=== PATIENT | female | born 1970 | race Caucasian/White ===

== ENCOUNTER 2016-12-01 21:58 | Observation (INO) | payer MEDICAID ==
[2016-12-01] MEDS ORDERED: SODIUM CHLORIDE 0.9% 500 ML IV STA (22:16)
--- NOTE | 2016-12-01 22:21 | ED ---
General Adult HPI - General Chief complaint: Arrhythmia/Palpitations Stated complaint: Arrythmia Time Seen by Provider: 12/01/16 22:00 Source: patient, RN notes reviewed Mode of arrival: wheelchair Limitations: no limitations - History of Present Illness Initial comments: This is a 46-year-old female presents emergency Department complaining of feeling like her heart is having an extra beat occasionally she states she's had this multiple times in the past but never been followed up for. Patient states he started to have some left arm heaviness and some pain into her neck and that made her nervous. Patient states the episodes occur quickly and go away quickly but they keep recurring. She came to the emergency department. Patient denies any shortness of breath patient denies any chest pain. Patient states she still has some arm heaviness. Patient denies headache patient denies numbness weakness. Patient denies lightheadedness dizziness or syncopal episode. Patient states now she is very anxious and she does have a history of anxiety. Patient is a smoker she denies being a diabetic denies hypertension denies high cholesterol. His any recent fever chill or cough. - Related Data Home Medications Medication Instructions Recorded Confirmed Albuterol Inhaler [Ventolin Hfa 2 puff IH DAILY 07/10/16 12/01/16 Inhaler] Montelukast Sodium [Singulair] 10 mg PO DAILY 07/10/16 12/01/16 Omalizumab [Xolair] 375 mg SQ DIRECTED 07/24/16 12/01/16 Fluticasone/Salmeterol [Advair 1 puff INHALATION BID 08/08/16 12/01/16 500-50 Diskus] Allergies Allergy/AdvReac Type Severity Reaction Status Date / Time levofloxacin [From Levaquin] Allergy Rash/Hives Verified 12/01/16 22:04 Review of Systems ROS Statement: Those systems with pertinent positive or pertinent negative responses have been documented in the HPI. ROS Other: All systems not noted in ROS Statement are negative. Past Medical History Past Medical History: Asthma Additional Past Medical History / Comment(s): psoriasis History of Any Multi-Drug Resistant Organisms: None Reported Past Surgical History: Ablation Additional Past Surgical History / Comment(s): endometrial ablation. wisdom teeth surgically removed Past Psychological History: Depression Smoking Status: Current every day smoker Past Alcohol Use History: Occasional Past Drug Use History: None Reported General Exam - General Exam Comments Initial Comments: GENERAL: Patient is well-developed and well-nourished. Patient is nontoxic and well- hydrated and is in mild distress. ENT: Neck is soft and supple. No significant lymphadenopathy is noted. Oropharynx is clear. Moist mucous membranes. Neck has full range of motion without eliciting any pain. EYES: The sclera were anicteric and conjunctiva were pink and moist. Extraocular movements were intact and pupils were equal round and reactive to light. Eyelids were unremarkable. PULMONARY: Unlabored respirations. Good breath sounds bilaterally. No audible rales rhonchi or wheezing was noted. CARDIOVASCULAR: There is a regular rate and rhythm without any murmurs gallops or rubs. ABDOMEN: Soft and nontender with normal bowel sounds. No palpable organomegaly was noted. There is no palpable pulsatile mass. SKIN: Skin is clear with no lesions or rashes and otherwise unremarkable. NEUROLOGIC: Patient is alert and oriented x3. Cranial nerves II through XII are grossly intact. Motor and sensory are also intact. Normal speech, volume and content. Symmetrical smile. MUSCULOSKELETAL: Normal extremities with adequate strength and full range of motion. No lower extremity swelling or edema. No calf tenderness. LYMPHATICS: No significant lymphadenopathy is noted PSYCHIATRIC: Normal psychiatric evaluation. Patient is very anxious Limitations: no limitations Course Vital Signs 12/01/16 12/01/16 22:01 23:28 Temperature 98.7 F Pulse Rate 90 72 Respiratory 20 18 Rate Blood Pressure 136/87 116/68 O2 Sat by Pulse 98 98 Oximetry Medical Decision Making - Medical Decision Making EKG shows normal sinus rhythm at 86 bpm VT interval 116 QRS is 76 QT interval 352 QTC is 421. Patient's EKG shows no ST segment elevation or depression or T- wave abdomen is noted. Chest x-ray shows no acute abnormality Patient had no more symptoms while in the emergency department however she was uncomfortable going home so decided that the patient repeat enzymes and have cardiology see the patient the morning. Spoke with Dr. Jacobo he agreed to admit the patient I wrote orders and consult cardiology. - Lab Data Result diagrams: 12/01/16 22:32 12/01/16 22:32 Lab Results 12/01/16 12/01/16 12/01/16 Range/Units 22:32 22:32 22:32 WBC 10.5 (3.8-10.6) k/uL RBC 4.31 (3.80-5.40) m/uL Hgb 13.5 (11.4-16.0) gm/dL Hct 39.4 (34.0-46.0) % MCV 91.4 (80.0-100.0) fL MCH 31.2 (25.0-35.0) pg MCHC 34.1 (31.0-37.0) g/dL RDW 12.6 (11.5-15.5) % Plt Count 295 (150-450) k/uL Neutrophils % 57 % Lymphocytes % 31 % Monocytes % 7 % Eosinophils % 2 % Basophils % 1 % Neutrophils # 6.0 (1.3-7.7) k/uL Lymphocytes # 3.3 (1.0-4.8) k/uL Monocytes # 0.7 (0-1.0) k/uL Eosinophils # 0.2 (0-0.7) k/uL Basophils # 0.1 (0-0.2) k/uL PT (9.0-12.0) sec INR (<1.1) APTT (22.0-30.0) sec Sodium 141 (137-145) mmol/L Potassium 4.1 (3.5-5.1) mmol/L Chloride 108 H (98-107) mmol/L Carbon Dioxide 23 (22-30) mmol/L Anion Gap 10 mmol/L BUN 11 (7-17) mg/dL Creatinine 0.80 (0.52-1.04) mg/dL Est GFR (MDRD) Af Amer >60 (>60 ml/min/1.73 sqM) Est GFR (MDRD) Non-Af >60 (>60 ml/min/1.73 sqM) Glucose 103 H (74-99) mg/dL Calcium 9.6 (8.4-10.2) mg/dL Magnesium 2.1 (1.6-2.3) mg/dL Total Bilirubin 0.5 (0.2-1.3) mg/dL AST 18 (14-36) U/L ALT 21 (9-52) U/L Alkaline Phosphatase 66 (38-126) U/L Total Creatine Kinase 117 (30-135) U/L CK-MB (CK-2) 0.3 (0.0-2.4) ng/mL CK-MB (CK-2) Rel Index 0.3 Troponin I <0.012 (0.000-0.034) ng/mL Total Protein 7.2 (6.3-8.2) g/dL Albumin 4.3 (3.5-5.0) g/dL TSH 2.990 (0.465-4.680) mIU/L Free T4 0.84 (0.78-2.19) ng/dL 12/01/16 Range/Units 22:32 WBC (3.8-10.6) k/uL RBC (3.80-5.40) m/uL Hgb (11.4-16.0) gm/dL Hct (34.0-46.0) % MCV (80.0-100.0) fL MCH (25.0-35.0) pg MCHC (31.0-37.0) g/dL RDW (11.5-15.5) % Plt Count (150-450) k/uL Neutrophils % % Lymphocytes % % Monocytes % % Eosinophils % % Basophils % % Neutrophils # (1.3-7.7) k/uL Lymphocytes # (1.0-4.8) k/uL Monocytes # (0-1.0) k/uL Eosinophils # (0-0.7) k/uL Basophils # (0-0.2) k/uL PT 10.6 (9.0-12.0) sec INR 1.0 (<1.1) APTT 23.3 (22.0-30.0) sec Sodium (137-145) mmol/L Potassium (3.5-5.1) mmol/L Chloride (98-107) mmol/L Carbon Dioxide (22-30) mmol/L Anion Gap mmol/L BUN (7-17) mg/dL Creatinine (0.52-1.04) mg/dL Est GFR (MDRD) Af Amer (>60 ml/min/1.73 sqM) Est GFR (MDRD) Non-Af (>60 ml/min/1.73 sqM) Glucose (74-99) mg/dL Calcium (8.4-10.2) mg/dL Magnesium (1.6-2.3) mg/dL Total Bilirubin (0.2-1.3) mg/dL AST (14-36) U/L ALT (9-52) U/L Alkaline Phosphatase (38-126) U/L Total Creatine Kinase (30-135) U/L CK-MB (CK-2) (0.0-2.4) ng/mL CK-MB (CK-2) Rel Index Troponin I (0.000-0.034) ng/mL Total Protein (6.3-8.2) g/dL Albumin (3.5-5.0) g/dL TSH (0.465-4.680) mIU/L Free T4 (0.78-2.19) ng/dL Disposition Clinical Impression: Atypical angina Disposition: ADMITTED IP TO THIS [facility] Time of Disposition: 23:47
[2016-12-01 22:44] LABS: Basophils # (A) 0.1 k/uL (0-0.2); Basophils % (A) 1 %; CH 31.2; CHCM 34.3; Eosinophils # (A) 0.2 k/uL (0-0.7); Eosinophils % (A) 2 %; HCT 39.4 % (34.0-46.0); HDW 2.18; HGB 13.5 gm/dL (11.4-16.0); Luc # (Auto) 0.23; Luc % (Auto) 2; Lymphocytes # (A) 3.3 k/uL (1.0-4.8); Lymphocytes % (A) 31 %; MCH 31.2 pg (25.0-35.0); MCHC 34.1 g/dL (31.0-37.0); MCV 91.4 fL (80.0-100.0); Mean Platelet Volume 7.4; Monocytes # (A) 0.7 k/uL (0-1.0); Monocytes % (A) 7 %; Neutrophils % (A) 57 %; RBC 4.31 m/uL (3.80-5.40); RDW 12.6 % (11.5-15.5); WBC 10.5 k/uL (3.8-10.6); WBC (Perox) 11.32
[2016-12-01 22:53] LABS: Partial Thromboplastin Time 23.3 sec (22.0-30.0); Prothrombin Time 10.6 sec (9.0-12.0)
--- NOTE | 2016-12-01 22:56 | XR ---
History: Reason: dysrhythmia Exam: XR CXR 2 VIEWS Comparison: None available FINDINGS: The lungs are clear. The cardiac and mediastinal contours are within limits. The visualized osseous structures appear within limits. IMPRESSION: No evidence of acute disease.
[2016-12-01 23:06] LABS: ALT 21 U/L (9-52); AST 18 U/L (14-36); Alkaline Phosphatase 66 U/L (38-126); Anion Gap 10 mmol/L; Blood Urea Nitrogen 11 mg/dL (7-17); Calcium 9.6 mg/dL (8.4-10.2); Carbon Dioxide 23 mmol/L (22-30); Chloride 108 mmol/L (98-107); Glucose 103 mg/dL (74-99); Magnesium 2.1 mg/dL (1.6-2.3); Non-African American GFR(MDRD) >60 (>60 ml/min/1.73 sqM); Potassium 4.1 mmol/L (3.5-5.1); Sodium 141 mmol/L (137-145); Total Bilirubin 0.5 mg/dL (0.2-1.3); Total Protein 7.2 g/dL (6.3-8.2)
[2016-12-01 23:16] LABS: Creatine Kinase 117 U/L (30-135)
[2016-12-01 23:28] LABS: Creatine Kinase MB 0.3 ng/mL (0.0-2.4); Troponin I <0.012 ng/mL (0.000-0.034)
[2016-12-01] MEDS ORDERED: NITROGLYCERIN SL TABS 0.4 MG TAB SUBLINGUAL PRN (23:47)
[2016-12-01] MEDS ORDERED: ASPIRIN 81 MG CHEW PO STA (23:47)
[2016-12-02] MEDS: NITROGLYCERIN OINT 1 INCH/GM PACKET TOPICAL SCH ×4 (00:26→16:29)
[2016-12-02 05:21] VITALS: BMI 26.4
[2016-12-02 06:36] LABS: Cholesterol 144 mg/dL (<200); HDL Cholesterol 51 mg/dL (40-60); Triglycerides 38 mg/dL (<150)
[2016-12-02 06:51] LABS: Creatine Kinase 97 U/L (30-135)
[2016-12-02 07:05] LABS: Creatine Kinase MB 0.3 ng/mL (0.0-2.4); Troponin I <0.012 ng/mL (0.000-0.034)
[2016-12-02] MEDS ORDERED: ALBUTEROL NEBULIZED 2.5 MG/3 ML INHALATION PRN (09:49)
[2016-12-02] MEDS ORDERED: LORazepam 2 MG/ML SYRINGE IV ONE (09:52)
[2016-12-02] MEDS ORDERED: OMALIZUMAB 150 MG VIAL SQ SCH (10:00)
[2016-12-02 11:33] LABS: Creatine Kinase 92 U/L (30-135)
[2016-12-02 11:44] LABS: Creatine Kinase MB 0.3 ng/mL (0.0-2.4); Troponin I <0.012 ng/mL (0.000-0.034)
--- NOTE | 2016-12-02 14:00 | ECHOF ---
Referral Reason:lv function MEASUREMENTS -------- HEIGHT: 162.6 cm WEIGHT: 69.4 kg BP: IVSd: 0.9 cm (0.6 - 1.1) LVIDd: 3.7 cm (3.9 - 5.3) LVPWd: 1.0 cm (0.6 - 1.1) IVSs: 1.1 cm LVIDs: 2.5 cm LVPWs: 1.4 cm Ao Diam: 2.8 cm (2.0 - 3.7) AV Cusp: 1.8 cm (1.5 - 2.6) LA Diam: 3.2 cm (2.7 - 3.8) MV EXCURSION: 11.844 mm (> 18.000) MV EF SLOPE: 75 mm/s (70 - 150) EPSS: 0.6 cm MV E Colt: 0.80 m/s MV DecT: 201 ms MV A Colt: 0.75 m/s MV E/A Ratio: 1.06 RAP: 5.00 mmHg RVSP: 13.38 mmHg FINDINGS -------- Sinus rhythm. This was a technically good study. The left ventricular size is normal. Left ventricular wall thickness is normal. Overall left ventricular systolic function is normal with, an EF between 55 - 60 %. The right ventricle is normal in size and function. The left atrium is normal in size. The right atrium is normal in size. The aortic valve is trileaflet, and appears structurally normal. No aortic stenosis or regurgitation. The mitral valve is normal. There is trace mitral regurgitation. Trace tricuspid regurgitation present. There is no evidence of pulmonary hypertension. The right ventricular systolic pressure, as measured by Doppler, is 13.38mmHg. There is no pulmonic regurgitation present. The aortic root size is normal. There is no pericardial effusion. CONCLUSIONS -------- 1. Sinus rhythm. 2. The aortic root size is normal. 3. There is no pericardial effusion. 4. This was a technically good study. 5. Left ventricular wall thickness is normal. 6. Overall left ventricular systolic function is normal with, an EF between 55 - 60 %. 7. The left atrium is normal in size. 8. The aortic valve is trileaflet, and appears structurally normal. No aortic stenosis or regurgitation. 9. There is trace mitral regurgitation. 10. Trace tricuspid regurgitation present. 11. There is no pulmonic regurgitation present. PROFESSOR COMPUTER SCIENCE: Rain Chinchilla RDCS
--- NOTE | 2016-12-02 15:39 | CONS ---
DATE OF CONSULTATION: Admitted by Dr. Jacobo. Consultation requested by Dr. Jacobo. REASON FOR CONSULTATION: Cardiac evaluation and treatment. 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 Presented to the hospital with palpitations, followed by left arm numbness and also, numbness left side of the jaw. Patient is a smoker, smokes about 7 cigarettes a day and no family history of premature coronary artery disease. No history of hypertension, no history of diabetes. Patient's cholesterol is within normal limits. LDL cholesterol is 85. Patient is reasonably active but does not do any exercise. Patient is a mother of 2 children had endometrial ablation done because of excessive menstrual bleeding. The patient's medications prior to admission include: 1. Albuterol inhaler. 2. Singulair. 3. Xolair. 4. Fluticasone IM. 5. Advair Diskus 500/50 1 puff b.i.d. ALLERGIES: INCLUDE LEVOFLOXACIN. Patient's review of systems are essentially unremarkable, history of asthma, history of psoriasis, otherwise unremarkable. Patient is a current smoker. History of depression. Review of systems are essentially unremarkable other than what is stated in the presenting illness. Physical examination revealed well-developed, well-nourished, 46-year-old lady not in any acute distress, oriented x3 with a pulse rate of 70 beats and regular, blood pressure 110/66, respirations of 18. HEAD: Normocephalic. HEENT unremarkable. Neck is supple. No thyroid enlargement. No bruit noted. Good carotid upstroke bilaterally. Chest is symmetrical. CARDIAC EXAMINATION: Regular rate and rhythm. S1 and S2. No gallops or murmurs are noted. Lungs are clinically to auscultation and percussion. Scattered rhonchi. ABDOMEN: Soft, no organomegaly. Active bowel sounds. EXTREMITIES: Peripheral pulses. No pedal edema. BASKETBALL COMMENTATOR examination: Grossly within normal limits. EKG revealed normal sinus rhythm, normal ST-T waves. The patient's rhythm strip showed one episode of slow V. tach and converted to sinus rhythm spontaneously. Patient does have frequent PVCs. Troponin x 2 are negative. Chest x-ray is unremarkable. ASSESSMENT: 1. Atypical chest pains with palpitations rule out underlying ischemic heart disease. 2. History of asthma. 3. History of smoking. RECOMMENDATIONS: Proceed with an echocardiogram and a stress echocardiogram. If the studies are normal, patient may be able to go home on beta blockers and complete cessation of smoking is recommended along with baby aspirin. If studies are abnormal may consider doing an event monitor as an outpatient, 30 day event monitoring.
--- NOTE | 2016-12-02 15:43 | EST ---
DATE OF SERVICE: 12/02/2016 AGE: 46Y SEX: F HT: 64" WT: 153 lbs. Protocol Hitesh: Other: Stage: Dur. of Exercise: 4:33 minutes *Heart Rate Blood Pressure *Rest: 74 Rest: 123/62 * *Max. Achieved: 151 Maximum BP: 213/73 85% PMHR: 150 100% PMHR: 176 *METS: 5.4 INDICATIONS: Chest pain. MEDICATIONS: See list. Baseline rhythm is sinus mechanism, rate of 74, normal axis and intervals. Normal electrocardiogram. Baseline blood pressure 123/62 mmHg. Patient exercised Hitesh protocol for 4 minutes 33 seconds reaching peak rate of 151 beats per minute, which is equal to 85% maximum predicted heart rate; peak blood pressure 204/70 mmHg. The test was stopped because of fatigue. There was no chest pain. Electrocardiograph monitoring revealed occasional PVCs. There was a 0.[address] segment depression at peak exercise that resolved in recovery. FINDINGS: Baseline echocardiogram revealed normal wall motion. At peak exercise there was normal wall motion augmentation with no hypokinesis or dyskinesis. CONCLUSION: 1. Poor exercise tolerance with occasional premature ventricular contractions and 0.[address] segment depression at peak exercise. 2. Normal stress echocardiogram with no evidence of stress-induced ischemia.
[2016-12-02 17:36] VITALS: BP 122/69; PULSE 74; RESP 16; TEMP 98.5
[2016-12-02] MEDS ORDERED: SYMBICORT 160-4.5 MCG INHALER INHALATION SCH (20:00)
[2016-12-02] MEDS ORDERED: MONTELUKAST 10 MG TAB PO SCH (21:00)
[2016-12-03] MEDS ORDERED: ALBUTEROL NEBULIZED 2.5 MG/3 ML INHALATION SCH (08:00)
[2016-12-03] MEDS ORDERED: ASPIRIN 325 MG TAB PO SCH (09:00)
--- NOTE | 2016-12-03 10:11 | HP ---
DATE OF ADMISSION: CHIEF COMPLAINT: Palpitations and arrhythmia. HISTORY OF PRESENT ILLNESS: This is a 46-year-old female with known history of asthma, active smoking, psoriasis and depression, who came to the hospital with complaints of feeling like heart stopped and the patient had multiple similar episodes for the past one week. The patient felt some chest heaviness and not pain as per the patient, which made the patient very nervous. The patient came to the hospital. The patient says that she had similar episode while in the telemetry unit. EKG showed multiple PVCs. Patient continued to smoke about 6 or 7 cigarettes per day, trying to quit. Denied any history of hypertension, diabetes mellitus. Otherwise, patient denied any complaints of dizziness or lightheadedness. No nausea or vomiting associated with the chest tightness. Patient was seen by Cardiology and recommended a stress test. REVIEW OF SYSTEMS: CONSTITUTIONAL: No fever. No chills. No weakness. RESPIRATORY: No cough or sputum production. CARDIOVASCULAR: ( ) short of breath. ABDOMEN: No nausea, vomiting or abdominal pain. EXTREMITIES: No leg swelling. GENITOURINARY: Negative. ENDOCRINE: Negative. PSYCHIATRIC: Anxious. SKIN: Negative. MUSCULOSKELETAL: Negative. All other fourteen point review of systems negative as above. PAST MEDICAL HISTORY: Psoriasis, asthma, depression. PAST SURGICAL HISTORY: Endometrial ablation secondary to menstrual heavy bleed, wisdom tooth surgically removed. SOCIAL HISTORY: The patient is currently an everyday smoker; smokes about 7 to 8 cigarettes per day. Occasional alcohol use. Denied any drugs or IVDU. The patient works as a RN. FAMILY HISTORY: No history of coronary artery disease in her family. ALLERGIES: LEVOFLOXACIN. Home medications include: Albuterol inhaler, Singulair, Xolair. Patient is supposed to get PFTs done next week. PHYSICAL EXAMINATION: A 46-year-old female, lying in the bed, awake, alert, oriented x3, in no apparent distress. Patient seems anxious. VITALS: Blood pressure 136/87, pulse is 90, respirations 20, temperature afebrile, pulse ox 98% on room air on admission. HEENT: Atraumatic, normocephalic. Neck is supple. No JVD. CVS: S1, S2 heard. No murmurs, no gallop, no rub. LUNGS: Entry is present. No wheezing. No crackles. Nonlabored breathing. ABDOMEN: Soft, nontender. Bowel sounds are present. CASE MGR: Awake, alert, oriented x3. No focal deficit. EXTREMITIES: No edema. Pulses palpable bilaterally. No clubbing or cyanosis. PSYCHIATRIC: Cooperative. LABORATORY DATA: WBC 10.5, hemoglobin 13.5, platelets 295, INR 1.0. Sodium 141, potassium 4.1, chloride 108, bicarb is 23, BUN 11, creatinine 0.8, blood sugar is 103. Liver enzymes are within normal limits. TSH is 2.9, FT4 is 0.84. UDS negative. Troponin x3 negative. Chest x-ray, no cardiopulmonary process. Echocardiogram showed a normal ejection fraction. No valvular abnormal. IMPRESSION: 1. Atypical chest pain with palpitations. Rule out any acute coronary syndrome. Patient was as seen by Cardiology and recommend stress test. 2. History of asthma. 3. Ongoing nicotine addiction. 4. Possible chronic obstructive pulmonary disease. 5. History of psoriasis. 6. Depression. 7. Anxiety. DISCUSSION AND PLAN: Patient will be continued on telemetry monitoring, serial EKGs and troponins. Cardiology has seen the patient and recommended a stress echo. The patient was counseled about smoking cessation. Continue to follow closely. Further recommendations based the clinical course. EKG showed normal sinus rhythm with occasional PVCs.
--- NOTE | 2016-12-03 20:23 | DS ---
DATE OF ADMISSION: 12/01/2016 DATE OF DISCHARGE: 12/02/2016 Cardiac consultation, stress echocardiogram. DISCHARGE DIAGNOSES: 1. Atypical chest pain, rule out acute coronary syndrome. 2. Palpitations. 3. Anxiety and depression. 4. History of psoriasis. 5. Continued ongoing nicotine addiction. 6. Asthma, suspected COPD patient is supposed to get pulmonary function test next week. DISCUSSION AND PLAN: A 46 -year-old female with known history of multiple medical problems as discussed above admitted to the hospital with heart palpitations, and felt like heart stopped and missed beats. The patient had EKG showed sinus rhythm with PVCs. The patient was telemonitored to the hospital. Cardiology has seen the patient. Recommendations stress echocardiogram which showed new ischemia in the stress echo. Otherwise, patient says that she had another episode of palpitations sometime today morning. The patient says that initially patient had this episode while watching TV and lasts about 15 minutes and numb and heavy feeling in the chest. Since stress test is negative, Cardiology recommended low-dose ( ) with beta blockers and baby aspirin and follow with cardiology for event monitor placement. Patient currently symptom free. The patient counselled extensively for smoking cessation and follow with pulmonary clinic for pulmonary function tests. Recommend to follow at cardiology clinic to get event monitor. Otherwise, the patient will be discharged home in stable condition, currently asymptomatic. PHYSICAL EXAMINATION: A 46-year-old female lying in bed comfortably, awake, alert and oriented times three, appears to be anxious. VITALS: Blood pressure is 122/69, pulse is 74, respirations 18, temperature afebrile, pulse ox 99% on room air. Laboratory data reviewed. Discharge physical examination done. Discharge medications include: 1. Albuterol inhaler 2 puffs inhalation daily. 2. ( ) Q.6 hourly p.r.n. for shortness of breath. 3. Singulair 10 mg p.o. daily. 4. Xolair 375 mg subcutaneous q. 14 days. 5. Advair 1 puff inhalation daily. 6. Aspirin 81 mg p.o. daily. 7. Metoprolol 12.5 mg p.o. b.i.d. The patient will be discharged home, heart healthy diet. Smoking cessation has been consulted and follow with pulmonary for PFTs and following at the cardiology clinic.
== END 2016-12-02 19:48 | disposition home or self-care (01) ==
LOC: EC 21:58 → 3SUR 23:49 → 3OBS 12-02 00:46 → 6SEL 12-02 04:34
PROVIDERS: ADMIT Hospitalist; ATTEND Hospitalist
DX: R07.89 Other chest pain (principal); R00.2 Palpitations; R20.0 Anesthesia of skin; L40.9 Psoriasis, unspecified; J45.909 Unspecified asthma, uncomplicated; F32.9 Major depressive disorder, single episode, unspecified; F41.9 Anxiety disorder, unspecified; F17.210 Nicotine dependence, cigarettes, uncomplicated; Z79.899 Other long term (current) drug therapy; Z79.51 Long term (current) use of inhaled steroids; Z88.1 Allergy status to other antibiotic agents
CPT/HCPCS: 99285; 36415; 93005; 93017; 93306; 93350; 84439; 80061; 80053; 82550 ×2; 82553 ×2; 83735; 84443; 84484 ×2; 85025; 85610; 85730; 80306; 71020; G0378 ×3

== ENCOUNTER 2017-12-23 17:26 | Emergency (ER) | payer MEDICAID ==
[2017-12-23 17:45] VITALS: RESP 16
--- NOTE | 2017-12-23 18:45 | ED ---
General Adult HPI - General Chief complaint: Skin/Abscess/Foreign Body Stated complaint: poss allergic rxn Time Seen by Provider: 12/23/17 17:46 Source: patient, RN notes reviewed Mode of arrival: ambulatory Limitations: no limitations - History of Present Illness Initial comments: 47-year-old female presents to the emergency department for a chief complaint of flushing after receiving Xolair at another location in the hospital. Patient states she has had her Xolair shots multiple times and has not had a problem. Patient states after receiving her injection she felt flushed and was monitored for one hour before being sent to the ER. Patient was sent to the ER due to the flushing. Patient denies any shortness of breath or constricting feeling to the throat. Patient denies any swelling of the tongue or lips. Patient states that since the flushing began she has started to feel much better. Patient states she has to drive home and cannot get a ride and does not want to call her . Patient also complains of tenderness along the injection site but states that is normal. She states it is a superficial tenderness in denies any abdominal pain, nausea or vomiting. Patient denies any other complaints at this time including chest pain and shortness of breath. - Related Data Home Medications Medication Instructions Recorded Confirmed Albuterol Inhaler [Ventolin Hfa 2 puff INHALATION RT-Q6H PRN 07/10/16 12/23/17 Inhaler] Montelukast Sodium [Singulair] 10 mg PO HS 07/10/16 12/23/17 Omalizumab [Xolair] 375 mg SQ Q14D 07/24/16 12/23/17 Beclomethasone Dip 80 Mcg/Puff 2 puff INHALATION Q12HR 12/24/16 12/23/17 [Qvar 80 mcg] Magnesium 250 mg PO BID 05/19/17 12/23/17 Metoprolol Tartrate [Lopressor] 25 mg PO DAILY 12/23/17 12/23/17 Allergies Allergy/AdvReac Type Severity Reaction Status Date / Time fluticasone Allergy Severe Rapid Verified 12/23/17 17:58 [From Advair Diskus] Heart Rate salmeterol Allergy Severe Rapid Verified 12/23/17 17:58 [From Advair Diskus] Heart Rate levofloxacin [From Levaquin] Allergy Rash/Hives Verified 12/23/17 17:58 Review of Systems ROS Statement: Those systems with pertinent positive or pertinent negative responses have been documented in the HPI. ROS Other: All systems not noted in ROS Statement are negative. Past Medical History Past Medical History: Asthma Additional Past Medical History / Comment(s): psoriasis. arrhythmia. BACK PAIN. History of Any Multi-Drug Resistant Organisms: None Reported Past Surgical History: Ablation Additional Past Surgical History / Comment(s): endometrial ablation. wisdom teeth surgically removed Past Anesthesia/Blood Transfusion Reactions: No Reported Reaction Past Psychological History: Depression Smoking Status: Former smoker Past Alcohol Use History: Rare Past Drug Use History: None Reported - Past Family History Mother Family Medical History: Diabetes Mellitus, Thyroid Disorder Father Family Medical History: Asthma, Diabetes Mellitus General Exam Limitations: no limitations General appearance: alert, in no apparent distress ENT exam: Present: normal exam, normal oropharynx (No swelling of the tongue and lips or throat noted.), mucous membranes moist, TM's normal bilaterally Neck exam: Present: normal inspection, full ROM. Absent: tenderness, meningismus, lymphadenopathy Respiratory exam: Present: normal lung sounds bilaterally. Absent: respiratory distress, wheezes, rales, rhonchi, stridor Cardiovascular Exam: Present: regular rate, normal rhythm, normal heart sounds. Absent: systolic murmur, diastolic murmur, rubs, gallop, clicks Neurological exam: Present: alert, oriented X3, CN II-XII intact Skin exam: Present: rash (Patient has very mild flushing on the face and abdomen. No urticaria noted. ) Course Vital Signs 12/23/17 17:40 Temperature 98.1 F Pulse Rate 92 Respiratory 16 Rate Blood Pressure 164/107 O2 Sat by Pulse 99 Oximetry Medical Decision Making - Medical Decision Making 47-year-old female says the emergency department for chief complaint of flushing after a Xolair reaction. Patient states she was given an injection of stairs and developed a flushing afterwards. Patient denies this happening previously. Patient denies any shortness of breath, chest pain, constricting of the throat, or swelling of the lips or tongue. Patient states her abdomen is tender but it is only the superficial skin where the injection was. Patient denies any abdominal pain nausea or vomiting and does not want any abdominal imaging. Patient does not want Benadryl because she has to drive home and does not want to call her . Patient states she just wanted to make sure everything was okay. Patient was monitored for another hour in the emergency department and the flushing had subsided somewhat. She was feeling better at that time. She still had not developed any shortness of breath or swelling in the mouth. This was likely a mild medication reaction to xolair. Patient was also anxious which may have contributed to the flushing. She will return to the emergency Department if she has worsening symptoms, begins to develop shortness of breath, or swelling in the lips or tongue. I thoroughly discussed this with patient and she is well aware. She will contact Dr. Stephenson tomorrow to let him know about the medication reaction. She will follow up with primary care in 1-2 days. Disposition Clinical Impression: Medication reaction Disposition: HOME SELF-CARE Condition: Good Instructions: General Allergic Reaction (ED) Additional Instructions: Please monitor for worsening symptoms, difficulty breathing, constricting of the throat, or swelling of the tongue or lips. Return if any of these occur. Otherwise take Benadryl at home as discussed. Follow up with primary care provider in one to 2 days. Is patient prescribed a controlled substance at discharge?: No Referrals: John Stephenson MD [Primary Care Provider] - 1-2 days Time of Disposition: 18:44
[2017-12-23 19:03] VITALS: BP 127/73; PULSE 74; TEMP 98
== END 2017-12-23 19:03 | disposition home or self-care (01) ==
LOC: EC 17:26
DX: R23.2 Flushing (principal); T48.6X5A Adverse effect of antiasthmatics, initial encounter; J45.909 Unspecified asthma, uncomplicated; Z87.891 Personal history of nicotine dependence; Z79.51 Long term (current) use of inhaled steroids; Z79.899 Other long term (current) drug therapy; Z88.1 Allergy status to other antibiotic agents; Z88.8 Allergy status to other drugs, medicaments and biological substances; Y92.239 Unspecified place in hospital as the place of occurrence of the external cause
CPT/HCPCS: 99282

== ENCOUNTER → 2024-11-19 | Outpatient (CLI) | payer BC ==
--- NOTE | 2024-11-19 18:20 | CT ---
EXAMINATION TYPE: CT knee RT wo con DATE OF EXAM: 11/19/2024 6:02 PM COMPARISON: Extremity radiograph same day. CLINICAL INDICATION: Female, 54 years old with history of T84.84XA PAIN DUE TO INTERNAL ORTHOPEDIC [place] [facility]; [facility], Right knee pain and swelling ever since knee surgery back in September. TECHNIQUE: Axial images were obtained of the CT knee RT wo con, Additional coronal and sagittal refor matted images and soft tissue and bone window were obtained for review. 3-D reconstruction was create d on a separate workstation. Contrast used: mL of , (None if empty) Oral contrast used: (None if empty) CT DLP: 621.3 mGycm, Automated exposure control for dose reduction was used. FINDINGS: Total arthroplasty changes of the right knee. No evidence for hardware loosening. There is a joint effusion present. No evidence of fracture. No organizing fluid collections in the soft tissue s. No radiopaque foreign bodies besides the arthroplasty identified. Few tortuous vessels seen in the lateral aspect of the posterior leg. IMPRESSION: Post total knee arthroplasty changes with no evidence of loosening or fracture. Small joint effusions present consider arthrocentesis to evaluate new fluid. [facility], , 11/19/2024 6:18 PM
== END | disposition home or self-care (01) ==
LOC: RADCTMAIN 17:39
PROVIDERS: ATTEND Orthopaedic Surgery
DX: T84.84XA Pain due to internal orthopedic prosthetic devices, implants and grafts, initial encounter (principal); Z96.651 Presence of right artificial knee joint